=== PATIENT | female | born 1950 | race Caucasian/White ===

== ENCOUNTER 2021-09-16 01:14 | Emergency (ER) | payer MEDICARE | END 2021-09-16 02:30 | disposition home or self-care (01) | LOC: NAV ERS 01:14 | DX: M54.41 Lumbago with sciatica, right side (principal); G89.29 Other chronic pain; M54.16 Radiculopathy, lumbar region; I10 Essential (primary) hypertension; E03.9 Hypothyroidism, unspecified; E78.5 Hyperlipidemia, unspecified; F17.290 Nicotine dependence, other tobacco product, uncomplicated; Z79.899 Other long term (current) drug therapy | CPT/HCPCS: 99283 ==